=== PATIENT | male | born 1955 | race Hispanic/Latino ===

== ENCOUNTER 2020-12-08 22:37 | Inpatient (IN) | payer MEDICARE, OTHER ==
[~2020-12-08] VITALS: Ht 172.7 cm; Wt 77.1 kg
[2020-12-08] MEDS ORDERED: ACETAMINOPHEN 325 MG TAB ONE (23:51)
[2020-12-09] VITALS (11 sets, daily range): BP systolic 111–129; BP diastolic 64–83
[2020-12-09 00:11] LABS: CREATINE KINASE MB 0.3 ng/mL (0-5.0)
[2020-12-09] MEDS ORDERED: ASPIRIN 81 MG CHEW TAB PO ONE (01:30)
[2020-12-09 01:34] LABS: BASOPHILS % 0.1 % (0.0-1.0); EOSINOPHILS % 0.2 % (0.0-6.0); HEMATOCRIT 35.9 % (38.2-49.6); HEMOGLOBIN 12.1 g/dL (14.0-18.0); LYMPHOCYTES # (AUTO) 0.8 (1.0-3.2); LYMPHOCYTES % 8.2 % (18.0-39.1); MEAN CORPUSCULAR HEMOGLOBIN 29.8 pg (28-32); MEAN CORPUSCULAR HGB CONC 33.7 g/dL (31-35); MEAN CORPUSCULAR VOLUME 88.4 fL (81-99); MONOCYTES # (AUTO) 0.7 (0.2-0.8); MONOCYTES % 7.3 % (4.4-11.3); NEUTROPHILS # (AUTO) 7.6 (2.1-6.9); NEUTROPHILS % 83.2 % (38.7-80.0); PLATELET COUNT 457 x10e3/uL (140-360); RED BLOOD COUNT 4.06 x10e6/uL (4.3-5.7); RED CELL DISTRIBUTION WIDTH 13.2 % (11.7-14.4)
[2020-12-09 01:48] LABS: ALBUMIN 2.8 g/dL (3.5-5.0); ALBUMIN/GLOBULIN RATIO 0.5 (0.8-2.0); ANION GAP 18.5 mmol/L (8-16); CALCIUM 9.5 mg/dL (8.4-10.2); CREATININE, SERUM 1.71 mg/dL (0.72-1.25); POTASSIUM 4.5 mmol/L (3.5-5.1)
[2020-12-09 08:48] LABS: BASOPHILS % 0.1 % (0.0-1.0); EOSINOPHILS # (AUTO) 0.1 (0.0-0.4); EOSINOPHILS % 1.7 % (0.0-6.0); HEMATOCRIT 33.2 % (38.2-49.6); LYMPHOCYTES # (AUTO) 0.9 (1.0-3.2); LYMPHOCYTES % 12.2 % (18.0-39.1); MEAN CORPUSCULAR HEMOGLOBIN 29.7 pg (28-32); MEAN CORPUSCULAR HGB CONC 33.1 g/dL (31-35); MEAN CORPUSCULAR VOLUME 89.7 fL (81-99); MONOCYTES # (AUTO) 0.6 (0.2-0.8); MONOCYTES % 7.9 % (4.4-11.3); NEUTROPHILS # (AUTO) 5.6 (2.1-6.9); NEUTROPHILS % 77.1 % (38.7-80.0); PLATELET COUNT 403 x10e3/uL (140-360); RED CELL DISTRIBUTION WIDTH 13.2 % (11.7-14.4)
[2020-12-09] MEDS ORDERED: SODIUM CHLORIDE 0.9% 1000ML 1,000 ML IV SCH (09:00)
[2020-12-09] MEDS ORDERED: SODIUM CHLORIDE 0.9% IV ONE (09:00)
[2020-12-09] MEDS ORDERED: DEXAMETHASONE SOD PHOS 10 MG/1 ML VIAL IV ONE (09:00)
[2020-12-09] MEDS ORDERED: REMDESIVIR IV ONE (09:00)
[2020-12-09] MEDS ORDERED: ENOXAPARIN 30 MG/0.3 ML SYR SC SCH (09:00)
[2020-12-09 09:15] LABS: CREATINE KINASE 55 IU/L (30-200)
[2020-12-09 09:23] LABS: ALBUMIN 2.5 g/dL (3.5-5.0); ALBUMIN/GLOBULIN RATIO 0.5 (0.8-2.0); ANION GAP 14.1 mmol/L (8-16); CALCIUM 9.3 mg/dL (8.4-10.2); CREATININE, SERUM 1.69 mg/dL (0.72-1.25); POTASSIUM 4.1 mmol/L (3.5-5.1)
[2020-12-09] MEDS: ASCORBIC ACID 500 MG TAB PO SCH ×2 (09:24→17:17)
[2020-12-09] MEDS: CEFTRIAXONE 2 GM in SODIUM CHLORIDE 0.9% 100 ML IV SCH (10:35)
[2020-12-09] MEDS: ZINC SULFATE 220 MG CAP PO SCH (10:35)
[2020-12-09] MEDS ORDERED: REMDESIVIR 200MG 200 MG in SODIUM CHLORIDE 0.9% 100 ML 100 ML IV ONE (11:00)
[2020-12-09] MEDS ORDERED: NABUMETONE750 MG PO (11:19)
[2020-12-09] MEDS ORDERED: ATORVASTATIN CA10 MG PO (11:20)
[2020-12-09] MEDS ORDERED: METFORMIN HCL500 MG PO (11:20)
[2020-12-09] MEDS: SODIUM CHLORIDE 0.9% 1000ML 1,000 ML IV SCH (11:43)
[2020-12-09] MEDS ORDERED: DEXTROSE 50% SYRINGE 50 ML IV PRN ×2 (15:45→16:15)
[2020-12-09] MEDS: INSULIN REGULAR, HUMAN 100 UNIT/1 ML SQ SCH ×2 (16:30→21:00)
[2020-12-09 20:40] LABS: CREATININE,URINE RANDOM 108.97 mg/dL (63-166); TOTAL PROTEIN, URINE 34.1 mg/dL (1-14)
[2020-12-09] MEDS: ENOXAPARIN 30 MG/0.3 ML SYR SC SCH (21:44)
[2020-12-10] VITALS (8 sets, daily range): BP systolic 98–130; BP diastolic 61–91
[2020-12-10] MEDS: SODIUM CHLORIDE 0.9% 1000ML 1,000 ML IV SCH (06:45)
[2020-12-10] MEDS: INSULIN REGULAR, HUMAN 100 UNIT/1 ML SQ SCH ×4 (07:30→21:00)
[2020-12-10] MEDS: CEFTRIAXONE 2 GM in SODIUM CHLORIDE 0.9% 100 ML IV SCH (10:02)
[2020-12-10] MEDS: ENOXAPARIN 30 MG/0.3 ML SYR SC SCH ×2 (10:02→21:55)
[2020-12-10] MEDS: DEXAMETHASONE SOD PHOS 10 MG/1 ML VIAL IV SCH (10:02)
[2020-12-10] MEDS: ZINC SULFATE 220 MG CAP PO SCH (10:02)
[2020-12-10] MEDS: ASCORBIC ACID 500 MG TAB PO SCH ×2 (10:02→17:44)
[2020-12-10] MEDS: REMDESIVIR 100MG 100 MG in SODIUM CHLORIDE 0.9% 100 ML IV SCH (10:26)
[2020-12-10 12:01] LABS: CREATINE KINASE MB 0.6 ng/mL (0-5.0)
[2020-12-10 20:06] LABS: BASOPHILS % 0.1 % (0.0-1.0); HEMOGLOBIN 9.6 g/dL (14.0-18.0); LYMPHOCYTES # (AUTO) 0.3 (1.0-3.2); LYMPHOCYTES % 4.1 % (18.0-39.1); MEAN CORPUSCULAR HEMOGLOBIN 30.1 pg (28-32); MEAN CORPUSCULAR HGB CONC 33.1 g/dL (31-35); MEAN CORPUSCULAR VOLUME 90.9 fL (81-99); MONOCYTES # (AUTO) 0.3 (0.2-0.8); MONOCYTES % 3.6 % (4.4-11.3); NEUTROPHILS # (AUTO) 6.6 (2.1-6.9); NEUTROPHILS % 91.6 % (38.7-80.0); PLATELET COUNT 371 x10e3/uL (140-360); RED BLOOD COUNT 3.19 x10e6/uL (4.3-5.7); RED CELL DISTRIBUTION WIDTH 13.2 % (11.7-14.4)
[2020-12-10 20:25] LABS: ALBUMIN/GLOBULIN RATIO 0.5 (0.8-2.0); ANION GAP 13.6 mmol/L (8-16); CALCIUM 7.8 mg/dL (8.4-10.2); CREATININE, SERUM 1.27 mg/dL (0.72-1.25); POTASSIUM 3.6 mmol/L (3.5-5.1)
[2020-12-11] VITALS (8 sets, daily range): BP systolic 99–130; BP diastolic 71–83
[2020-12-11] MEDS: SODIUM CHLORIDE 0.9% 1000ML 1,000 ML IV SCH ×2 (00:04→23:10)
[2020-12-11] MEDS: GUAIFENESIN/CODEINE 10 ML CUP PO PRN ×2 (00:05→06:00)
[2020-12-11 06:32] LABS: BASOPHILS % 0.1 % (0.0-1.0); HEMATOCRIT 34.2 % (38.2-49.6); HEMOGLOBIN 11.7 g/dL (14.0-18.0); LYMPHOCYTES % 8.3 % (18.0-39.1); MEAN CORPUSCULAR HEMOGLOBIN 30.5 pg (28-32); MEAN CORPUSCULAR HGB CONC 34.2 g/dL (31-35); MEAN CORPUSCULAR VOLUME 89.1 fL (81-99); MONOCYTES # (AUTO) 0.5 (0.2-0.8); NEUTROPHILS # (AUTO) 10.7 (2.1-6.9); NEUTROPHILS % 86.9 % (38.7-80.0); PLATELET COUNT 423 x10e3/uL (140-360); RED BLOOD COUNT 3.84 x10e6/uL (4.3-5.7); RED CELL DISTRIBUTION WIDTH 13.1 % (11.7-14.4)
[2020-12-11 06:51] LABS: ALBUMIN 2.5 g/dL (3.5-5.0); ALBUMIN/GLOBULIN RATIO 0.6 (0.8-2.0); ANION GAP 16.1 mmol/L (8-16); CALCIUM 9.1 mg/dL (8.4-10.2); CREATININE, SERUM 1.37 mg/dL (0.72-1.25); POTASSIUM 4.1 mmol/L (3.5-5.1)
[2020-12-11] MEDS: INSULIN REGULAR, HUMAN 100 UNIT/1 ML SQ SCH ×4 (07:30→20:26)
[2020-12-11] MEDS ORDERED: CEFTRIAXONE 2 GM VIAL ONE (08:46)
[2020-12-11] MEDS ORDERED: REMDESIVIR 100MG 100 MG IV ONE (08:46)
[2020-12-11] MEDS ORDERED: SODIUM CHLORIDE 0.9% 100 ML ONE (09:23)
[2020-12-11] MEDS: DEXAMETHASONE SOD PHOS 10 MG/1 ML VIAL IV SCH (09:58)
[2020-12-11] MEDS: ZINC SULFATE 220 MG CAP PO SCH (09:58)
[2020-12-11] MEDS: ASCORBIC ACID 500 MG TAB PO SCH ×2 (09:58→16:20)
[2020-12-11] MEDS: ENOXAPARIN 30 MG/0.3 ML SYR SC SCH ×2 (09:58→20:30)
[2020-12-11] MEDS: CEFTRIAXONE 2 GM in SODIUM CHLORIDE 0.9% 100 ML IV SCH (09:58)
[2020-12-11] MEDS: REMDESIVIR 100MG 100 MG in SODIUM CHLORIDE 0.9% 100 ML IV SCH (11:12)
[2020-12-11] MEDS: BENZONATATE 100 MG CAP PO PRN ×2 (12:38→18:52)
[2020-12-11] MEDS: TAMSULOSIN HCL 0.4 MG CAP PO SCH (20:30)
[2020-12-12] VITALS (8 sets, daily range): BP systolic 109–147; BP diastolic 75–94
[2020-12-12] MEDS: ACETAMINOPHEN 325 MG TAB PO PRN ×2 (00:20→08:00)
[2020-12-12] MEDS: INSULIN REGULAR, HUMAN 100 UNIT/1 ML SQ SCH ×4 (07:30→21:18)
[2020-12-12] MEDS: CEFTRIAXONE 2 GM in SODIUM CHLORIDE 0.9% 100 ML IV SCH (09:00)
[2020-12-12] MEDS: REMDESIVIR 100MG 100 MG in SODIUM CHLORIDE 0.9% 100 ML IV SCH (09:00)
[2020-12-12] MEDS: ASCORBIC ACID 500 MG TAB PO SCH ×2 (09:18→16:42)
[2020-12-12] MEDS: ENOXAPARIN 30 MG/0.3 ML SYR SC SCH ×2 (09:18→21:09)
[2020-12-12] MEDS: ZINC SULFATE 220 MG CAP PO SCH (09:18)
[2020-12-12] MEDS: DEXAMETHASONE SOD PHOS 10 MG/1 ML VIAL IV SCH (09:18)
[2020-12-12] MEDS ORDERED: SODIUM CHLORIDE 0.9% 100 ML ONE (10:06)
[2020-12-12] MEDS: BENZONATATE 100 MG CAP PO PRN ×2 (10:40→21:30)
[2020-12-12 18:12] LABS: ANION GAP 14.5 mmol/L (8-16); CALCIUM 8.7 mg/dL (8.4-10.2); CREATININE, SERUM 1.4 mg/dL (0.72-1.25); POTASSIUM 4.5 mmol/L (3.5-5.1)
[2020-12-12] MEDS: TAMSULOSIN HCL 0.4 MG CAP PO SCH (21:09)
[2020-12-12] MEDS: SODIUM CHLORIDE 0.9% 1000ML 1,000 ML IV SCH (21:09)
[2020-12-13] VITALS (8 sets, daily range): BP systolic 107–142; BP diastolic 71–87
[2020-12-13 07:06] LABS: ANION GAP 8.1 mmol/L (8-16); CREATININE, SERUM 0.83 mg/dL (0.72-1.25); POTASSIUM 3.1 mmol/L (3.5-5.1)
[2020-12-13 07:10] LABS: CALCIUM 6.5 mg/dL (8.4-10.2)
[2020-12-13] MEDS: INSULIN REGULAR, HUMAN 100 UNIT/1 ML SQ SCH ×4 (07:30→21:15)
[2020-12-13] MEDS: BENZONATATE 100 MG CAP PO PRN (08:30)
[2020-12-13] MEDS: ASCORBIC ACID 500 MG TAB PO SCH ×2 (09:00→17:00)
[2020-12-13] MEDS: ENOXAPARIN 30 MG/0.3 ML SYR SC SCH ×2 (09:00→20:25)
[2020-12-13] MEDS: ZINC SULFATE 220 MG CAP PO SCH (09:00)
[2020-12-13] MEDS: DEXAMETHASONE SOD PHOS 10 MG/1 ML VIAL IV SCH (09:00)
[2020-12-13] MEDS: CEFTRIAXONE 2 GM in SODIUM CHLORIDE 0.9% 100 ML IV SCH (09:00)
[2020-12-13] MEDS: REMDESIVIR 100MG 100 MG in SODIUM CHLORIDE 0.9% 100 ML IV SCH (10:30)
[2020-12-13] MEDS ORDERED: POTASSIUM CHLORIDE 20 MEQ TAB CR PO ONE (11:00)
[2020-12-13] MEDS ORDERED: CALCIUM GLUCONATE 10% INJ 4.65 MEQ in SODIUM CHLORIDE 0.9% 50ML 50 ML IV ONE (12:00)
[2020-12-13] MEDS: SODIUM CHLORIDE 0.9% 1000ML 1,000 ML IV SCH (20:25)
[2020-12-13] MEDS: TAMSULOSIN HCL 0.4 MG CAP PO SCH (20:25)
[2020-12-14] VITALS (7 sets, daily range): BP systolic 105–145; BP diastolic 56–91
[2020-12-14 06:09] LABS: BASOPHILS % 0.1 % (0.0-1.0); HEMATOCRIT 33.2 % (38.2-49.6); LYMPHOCYTES # (AUTO) 1.2 (1.0-3.2); LYMPHOCYTES % 16.2 % (18.0-39.1); MEAN CORPUSCULAR HEMOGLOBIN 30.1 pg (28-32); MEAN CORPUSCULAR HGB CONC 33.1 g/dL (31-35); MEAN CORPUSCULAR VOLUME 90.7 fL (81-99); MONOCYTES # (AUTO) 0.5 (0.2-0.8); MONOCYTES % 7.6 % (4.4-11.3); NEUTROPHILS # (AUTO) 5.3 (2.1-6.9); NEUTROPHILS % 75.1 % (38.7-80.0); PLATELET COUNT 380 x10e3/uL (140-360); RED BLOOD COUNT 3.66 x10e6/uL (4.3-5.7); RED CELL DISTRIBUTION WIDTH 13.5 % (11.7-14.4)
[2020-12-14 06:54] LABS: ALBUMIN 2.3 g/dL (3.5-5.0); ALBUMIN/GLOBULIN RATIO 0.6 (0.8-2.0); ANION GAP 12.1 mmol/L (8-16); CALCIUM 8.8 mg/dL (8.4-10.2); CREATININE, SERUM 1.24 mg/dL (0.72-1.25); POTASSIUM 4.1 mmol/L (3.5-5.1)
[2020-12-14] MEDS: INSULIN REGULAR, HUMAN 100 UNIT/1 ML SQ SCH ×4 (07:30→20:52)
[2020-12-14] MEDS: ZINC SULFATE 220 MG CAP PO SCH (08:33)
[2020-12-14] MEDS: DEXAMETHASONE SOD PHOS 10 MG/1 ML VIAL IV SCH (08:33)
[2020-12-14] MEDS: SERTRALINE HCL 50 MG TAB PO SCH (08:33)
[2020-12-14] MEDS: ASCORBIC ACID 500 MG TAB PO SCH ×2 (08:33→15:52)
[2020-12-14] MEDS: ENOXAPARIN 30 MG/0.3 ML SYR SC SCH ×2 (08:33→20:00)
[2020-12-14] MEDS: BENZONATATE 100 MG CAP PO PRN (08:33)
[2020-12-14] MEDS ORDERED: SODIUM BICARBONATE 650 MG TAB PO SCH (09:00)
[2020-12-14] MEDS: LORAZEPAM 0.5 MG TAB PO PRN ×2 (09:22→15:52)
[2020-12-14] MEDS: SODIUM CHLORIDE 0.9% 1000ML 1,000 ML IV SCH (12:17)
[2020-12-14] MEDS: TAMSULOSIN HCL 0.4 MG CAP PO SCH ×2 (12:25→20:00)
[2020-12-15 00:21] VITALS: BP 136/82
[2020-12-15 04:40] VITALS: BP 134/80
[2020-12-15 07:01] LABS: ANION GAP 15.1 mmol/L (8-16); CALCIUM 8.9 mg/dL (8.4-10.2); CREATININE, SERUM 1.12 mg/dL (0.72-1.25); POTASSIUM 4.1 mmol/L (3.5-5.1)
[2020-12-15 07:30] VITALS: BP 133/85
[2020-12-15] MEDS: INSULIN REGULAR, HUMAN 100 UNIT/1 ML SQ SCH (07:30)
[2020-12-15 08:00] VITALS: BP 133/85
[2020-12-15] MEDS: ENOXAPARIN 30 MG/0.3 ML SYR SC SCH (09:01)
[2020-12-15] MEDS: TAMSULOSIN HCL 0.4 MG CAP PO SCH (09:01)
[2020-12-15] MEDS: ZINC SULFATE 220 MG CAP PO SCH (09:01)
[2020-12-15] MEDS: ASCORBIC ACID 500 MG TAB PO SCH (09:01)
[2020-12-15] MEDS: SERTRALINE HCL 50 MG TAB PO SCH (09:01)
[2020-12-15] MEDS: DEXAMETHASONE SOD PHOS 10 MG/1 ML VIAL IV SCH (09:01)
[2020-12-15] MEDS: BENZONATATE 100 MG CAP PO PRN (09:10)
[2020-12-15 12:09] VITALS: BP 129/86
[2020-12-15] MEDS ORDERED: TESSALON PERLE100 MG PO (13:46)
[2020-12-15] MEDS ORDERED: DECADRON4 M1 PO (13:46)
[2020-12-15] MEDS ORDERED: ZOLOFT50 MG PO (13:46)
[2020-12-15] MEDS ORDERED: FLOMAX0.4 MG PO (13:46)
== END 2020-12-15 15:25 | disposition home or self-care (01) | DRG 871 ==
LOC: ER 23:45 → ERHOLD 12-09 00:18 → MED/SURG3 12-09 04:43
PROVIDERS: ADMIT Internal Medicine; ATTEND Internal Medicine
PROC: XW043E5 Introduction of Remdesivir Anti-infective into Central Vein, Percutaneous Approach, New Technology Group 5 (ICD-10-PCS; principal; 2020-12-09)
PROC: 8E0ZXY6 Isolation (ICD-10-PCS; 2020-12-09)
PROC: 02HV33Z Insertion of Infusion Device into Superior Vena Cava, Percutaneous Approach (ICD-10-PCS; 2020-12-09)
PROC: 8E0ZXY6 Isolation (ICD-10-PCS; 2020-12-09)
DX: A41.89 Other specified sepsis (principal); U07.1 COVID-19; J12.89 Other viral pneumonia; J96.01 Acute respiratory failure with hypoxia; N17.9 Acute kidney failure, unspecified; E87.2 Acidosis; B97.89 Other viral agents as the cause of diseases classified elsewhere; E83.51 Hypocalcemia; N40.1 Benign prostatic hyperplasia with lower urinary tract symptoms; R33.8 Other retention of urine; F41.9 Anxiety disorder, unspecified; E86.1 Hypovolemia; I12.9 Hypertensive chronic kidney disease with stage 1 through stage 4 chronic kidney disease, or unspecified chronic kidney disease; N18.9 Chronic kidney disease, unspecified; E78.5 Hyperlipidemia, unspecified; E11.22 Type 2 diabetes mellitus with diabetic chronic kidney disease
CPT/HCPCS: 36415; 36569; 71045; 76770; 80048; 80053; 82550; 82553; 82570; 82948; 84156; 84300; 84484; 85025; 87070; 87205; 96361; 96372; 99284; J0456; J0610; J0696; J1100; J1650; J1817; J7030; J7050; U0002